=== PATIENT | female | born 1990 | race Caucasian/White ===

== ENCOUNTER 2019-06-12 07:08 | Emergency (ER) | payer OTHER ==
[~2019-06-12] VITALS: Ht 170.2 cm; Wt 56.7 kg
--- NOTE | 2019-06-12 07:20 | NUR ---
C/O DUSYRIA, BURNING SENSATION WHEN URINATING x 2 DAYS. PATIENT A/OX4, NO DISTRESS NOTED, KEPT COMFORTABLE, CHANGED INTO GOWN, ATTACHED TO THE [employer]VENUE STAMP CLERK, NEEDS ATTENDED.
[2019-06-12 07:36] LABS: APPEARANCE,URINE Clear (CLEAR); BILIRUBIN,URINE Negative (NEGATIVE); BLOOD, URINE Small Ery/uL (NEGATIVE); KETONES,URINE Negative (NEGATIVE); NITRITE, URINE Negative (NEGATIVE); PH,URINE 6.5 (5.0-8.0); PROTEIN,URINE Negative (NEGATIVE); UGLUCOSE Negative (NEGATIVE); UROBILINOGEN,URINE 0.2 EU/dL (0.2)
[2019-06-12 07:37] LABS: LEUKOCYTE ESTERASE ,URINE Small (NEGATIVE)
[2019-06-12 07:41] LABS: COLOR,URINE Yellow (YELLOW)
[2019-06-12 07:51] LABS: BACTERIA,URINE Rare /HPF (None Seen); SQUAMOUS EPITHELIAL CELL,UR Few /HPF (None Seen)
--- NOTE | 2019-06-12 08:07 | NUR ---
PELVIC EXAM DONE BY . RN AT BEDSIDE. PT MADE AWARE W PLAN OF CARE.
[2019-06-12] MEDS ORDERED: AZITHROMYCIN 250 MG TABLET PO ONE (10:00)
[2019-06-12] MEDS ORDERED: CEFTRIAXONE 500 MG VIAL IM ONE (10:00)
[2019-06-12] MEDS ORDERED: CEFTRIAXONE 500 MG VIAL ONE (10:11)
[2019-06-12] MEDS ORDERED: AZITHROMYCIN 250 MG TABLET ONE (10:11)
[2019-06-12] MEDS ORDERED: LIDOCAINE /MPF 1% VIAL 5 ML VIAL ONE (10:11)
[2019-06-12 10:35] VITALS: BP 118/82
--- NOTE | 2019-06-12 10:35 | NUR ---
Patient discharged to home in stable condition. Written and verbal after care instructions given. Patient verbalizes understanding of instruction.
== END 2019-06-12 10:36 | disposition home or self-care (01) ==
LOC: ER 07:08
DX: N39.0 Urinary tract infection, site not specified (principal)
CPT/HCPCS: 81001; 84703; 87077; 87086; 87210; 87491; 87591; 96372; 99283; J0696; J3490; 81000-TC